=== PATIENT | female | born 1960 | race Caucasian/White ===

== ENCOUNTER → 2021-05-13 | Outpatient (CLI) | payer OTHER | LOC: CAT 10:53 | PROVIDERS: ATTEND Internal Medicine | DX: Z13.6 Encounter for screening for cardiovascular disorders (principal); I25.10 Atherosclerotic heart disease of native coronary artery without angina pectoris ==

== ENCOUNTER → 2021-05-16 | Outpatient (CLI) | payer OTHER | LOC: SJCVCIMAG 08:41 | PROVIDERS: ATTEND Internal Medicine | DX: I49.3 Ventricular premature depolarization (principal); R07.89 Other chest pain; R00.2 Palpitations; I48.91 Unspecified atrial fibrillation; R06.00 Dyspnea, unspecified; I10 Essential (primary) hypertension ==

== ENCOUNTER → 2021-05-25 | Outpatient (CLI) | payer OTHER ==
[~2021-05-25] VITALS: Ht 172.7 cm; Wt 80.9 kg
[~2021-05-25] MED LIST: ASPIRIN EC325 MG PO; TOPROL XL25 MG PO; XARELTO20 MG PO; ZOLPIDEM TARTRA10 MG PO
[2021-05-25 07:18] VITALS: BP 139/78
--- NOTE | 2021-05-25 08:23 | TEE ---
[facility] [place] [address] TRANSESOPHAGEAL ECHOCARDIOGRAM Name: WILFRID ESCUDERO Room #: REG [facility]#: [id number] Admission: 05/25/21 Attend Phys: Florian Ha MD, Discharge: Date of : 58 Report #: [id number] THIS REPORT FOR: cc: Jerson Velasquez Alan Z. DO Santiago, Patrick MD [facility] ~ APPROVED REPORT Study performed: 05/25/2021 07:51:08 EXAM: Transesophageal Echocardiogram Patient Location: Out-Patient BSA: 1.94 HR: 61 bpm BP: 140/80 mmHg Rhythm: Atrial Fibrillation Other Information Study Quality: Good Indications Atrial Fibrillation Cardioversion. Procedure After obtaining informed consent, patient underwent transesophageal echo in the [employer]. Type of Sedation : Conscious Sedation Sedation was administered by Ariane Wilson RN. Sedation start time: 0755 Case end Time: 0800 Sedation was achieved intravenously with: Versed (5.5) Fentanyl (75) Transesophageal probe was inserted and advanced into esophagus without difficulty by Florian Ha MD [facility]. Echo enhancement indication: R/O Septal defect. Echo enhancement agent administered: Agitated Saline The HUDSON was performed without complications. Synchronized Cardioversion attempted: Successful Synchronized Cardioversion acheived with 75 x2 Joules after 2 attempt(s). Rhythm following Synchronized Cardioversion: Normal Sinus Rhythm Throughout the procedure, the blood pressure, pulse oximetry, cardiac rhythm, and rate were monitored. The patient tolerated the procedure without adverse effects. Recovery [facility] [address] [place] [address] TRANSESOPHAGEAL ECHOCARDIOGRAM Name: WILFRID ESCUDERO Room #: REG [facility]#: [id number] Admission: 05/25/21 Attend Phys: Florian Ha, Discharge: Date of : 58 Report #: [id number] from conscious sedation was uneventful and vital signs were stable. Left Ventricle The left ventricle is normal size. There is normal left ventricular wall thickness. Left ventricular systolic function is mildly decreased. LVEF is 40-45%. Right Ventricle The right ventricle is normal size. The right ventricular systolic function is normal. Atria Left atrium is dilated. No thrombus is visualized in the left atrium or appendage. The right atrium size is normal. No shunting noted with contrast bubble injection. Aortic Valve The aortic valve is normal in structure. No aortic regurgitation is present. There is no aortic valvular stenosis. Mitral Valve The mitral valve is normal in structure. Mild mitral regurgitation. No evidence of mitral valve stenosis. Tricuspid Valve The tricuspid valve is normal in structure. Great Vessels The aortic root is normal in size. The ascending aorta is normal in size. Pericardium There is no pericardial effusion. <Conclusion> Atrial fibrillation at baseline Consent was obtained After appropriate sedation esophageal probe was advanced without difficulty Left ventricle normal in size/wall thickness, mild global hypokinesis ejection fraction 45% Left atrial appendage, moderate size, no obvious mass or clot detected Moderately dilated left atrium Normal right atrial size [facility] [address] [place] [address] TRANSESOPHAGEAL ECHOCARDIOGRAM Name: WILFRID ESCUDERO Room #: REG [facility]#: [id number] Admission: 05/25/21 Attend Phys: Florian Ha, Discharge: Date of : 58 Report #: [id number] Mild central mitral valve insufficiency Tricuspid aortic valve, no insufficiency detected No evidence of ASD/VSD by color flow/bubble study No pericardial effusion Normal aortic root size Aorta; no calcification detected Patient was converted to sinus rhythm after 75J/ biphasic mode x2 Patient tolerated the procedure well Twelve-lead ECG pending <ELECTRONICALLY SIGNED> By: Florian Ha MD, FACC 05/25/21822 2 2 Florian Ha MD, FACC /INF
--- NOTE | 2021-05-25 08:41 | EKG ---
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 : 1960 Requested By: Florian Ha Order Number: [id number] MD: Dereje Morin Measurements Intervals [place] Rate: 46 P: 131 VA: 199 QRS: 167 QRSD: 93 T: 145 QT: 463 QTc: 405 Interpretive Statements Electrode reversal, interpretation assumes no reversal Sinus bradycardia Atrial premature complexes Inferior infarct, old Nonspecific T wave abnormality No previous ECG available for comparison Electronically Signed On 05-25-2021 8:41:11 CDT by Dereje Morin [email or web address] <ELECTRONICALLY SIGNED> By: Deerje Morin MD, [facility] 05/25/21 0841 [id number] Dereje Morin MD, FACC /EPI
== END | disposition home or self-care (01) ==
LOC: CATH 06:27
PROVIDERS: ATTEND Internal Medicine
DX: I48.91 Unspecified atrial fibrillation (principal); I34.9 Nonrheumatic mitral valve disorder, unspecified; I10 Essential (primary) hypertension; D64.9 Anemia, unspecified; Z98.890 Other specified postprocedural states; Z79.899 Other long term (current) drug therapy; Z79.01 Long term (current) use of anticoagulants; Z88.8 Allergy status to other drugs, medicaments and biological substances; Z82.49 Family history of ischemic heart disease and other diseases of the circulatory system

== ENCOUNTER → 2021-07-28 | Outpatient (CLI) | payer OTHER ==
--- NOTE | 2021-07-28 08:18 | EKG ---
[place] [address] 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 : 1960 Requested By: Florian Ha Order Number: [id number] MD: Florian Ha Measurements Intervals [place] Rate: 47 P: 49 DE: 195 QRS: 23 QRSD: 98 T: 40 QT: 491 QTc: 434 Interpretive Statements Sinus bradycardia Atrial premature complex Borderline T abnormalities, anterior leads Compared to ECG 05/25/2021 08:36:28 Myocardial infarct finding no longer present T-wave abnormality still present Electronically Signed On 07-28-2021 8:18:18 CDT by Florian Ha [email or web address] <ELECTRONICALLY SIGNED> By: Florian Ha MD, [facility] 07/28/2118 0 0 Florian Ha MD, FACC /EPI
== END | disposition home or self-care (01) ==
LOC: CATH 06:30
PROVIDERS: ATTEND Internal Medicine
DX: I48.91 Unspecified atrial fibrillation (principal); Z53.8 Procedure and treatment not carried out for other reasons; Z79.899 Other long term (current) drug therapy; Z88.8 Allergy status to other drugs, medicaments and biological substances